=== PATIENT | female | born 1955 | race Caucasian/White ===

== ENCOUNTER → 2017-01-22 | Outpatient (CLI) | payer BC ==
[~2017-01-22] MED LIST: ADVIL200 MG PO; AMOXICILLIN875 MG PO; ASPIRIN 81M81 MG/TA2 PO; CENTRUM SILVER1 TAB PO; CINNAMON500 MG PO; DETROL LA4 PO; DUTOPROL PO; GLUCOPHAGE500 MG/TAB PO; GLUCOSAMINE & C1 CA2 PO; HYZAAR 12.5 MG-1 TAB PO; LUTEIN20 M1 PO; NORVASC 10MG10 MG PO; PLAVIX 75MG TAB75 MG PO; TOPROL XL100 MG PO; TYLENOL 325MG325 MG PO; VITAMIN C500 MG PO; ZOCOR 40MG40 MG PO
== END ==
LOC: MC.RAD 13:04
DX: Z12.31 Encounter for screening mammogram for malignant neoplasm of breast (principal); Z80.3 Family history of malignant neoplasm of breast

== ENCOUNTER → 2018-01-24 | Outpatient (CLI) | payer BC | LOC: MC.RAD 12:57 | DX: Z12.31 Encounter for screening mammogram for malignant neoplasm of breast (principal) ==

== ENCOUNTER → 2019-02-01 | Outpatient (CLI) | payer MEDICARE, OTHER | LOC: MC.RAD 13:35 | DX: Z12.31 Encounter for screening mammogram for malignant neoplasm of breast (principal) ==

== ENCOUNTER → 2020-05-14 | Outpatient (CLI) | payer MEDICARE, OTHER | LOC: MC.RAD 16:04 | DX: Z12.31 Encounter for screening mammogram for malignant neoplasm of breast (principal) ==

== ENCOUNTER → 2021-05-15 | Outpatient (CLI) | payer MEDICARE, OTHER | LOC: MC.RAD 09:04 | DX: Z12.31 Encounter for screening mammogram for malignant neoplasm of breast (principal) ==

== ENCOUNTER 2021-12-10 09:45 | Day surgery (SDC) | payer MEDICARE, OTHER ==
[~2021-12-10] VITALS: Ht 162.6 cm; Wt 88.0 kg
[2021-12-10] VITALS (15 sets, daily range): BP systolic 120–156; BP diastolic 59–95; PULSE 40–54; TEMP 97.4
[2021-12-10 10:45] LABS: HEMOGLOBIN 13.6 g/dl (12.5-16.0); MEAN CELL VOLUME 84 fl (80.0-100.0); MEAN CORPUSCULAR HEMOGLOBIN 31 pg (27-31); MEAN CORPUSCULAR HGB CONC 37 g/dl (33.0-37.0); MEAN PLATELET VOLUME 10.1 fl (7.4-10.4); PLATELET COUNT 309 K/mm3 (130-400); RED BLOOD COUNT 4.34 M/mm3 (4.10-5.30); REDCELL DISTRIBUTION WIDTH-CV 11.6 % (11.5-14.5)
[2021-12-10 10:46] LABS: HEMATOCRIT 36.5 % (37.0-47.0)
[2021-12-10 10:58] LABS: CALCIUM 9.8 mg/dL (8.4-10.2); CREATININE, serum 0.86 mg/dL (0.57-1.11); POTASSIUM 3.5 mmol/L (3.5-4.5)
[2021-12-10 11:12] LABS: PROTHROMBIN TIME 11.5 SECONDS (9.7-12.8)
--- NOTE | 2021-12-10 11:41 | NUR ---
See merge for all medication admin times and intra post sedation assessment.
[2021-12-10] MEDS ORDERED: LIPITOR 80MG80 MG PO (14:37)
[2021-12-10] MEDS ORDERED: TOPROL XL 50MG50 MG PO (14:37)
[2021-12-10] MEDS ORDERED: IMDUR 60MG60 MG/TAB PO (14:38)
[2021-12-10] MEDS ORDERED: ATACAND HCT 321 TA1 PO (14:39)
--- NOTE | 2021-12-10 17:38 | NUR ---
1525 WAS INFORMED HOONRIO (MERGERS AND ACQUISITIONS ATTORNEY) WAS IN PATIENT'S ROOM HOLDING PRESSURE TO PATIENT'S RIGHT ARM AT AND ABOVE RIGHT ELBOW PATIENT IFORMED STAFF OF PAIN TO AREA. HEMATOMA NOTED, ICE APPLIED TO SITE. DR OLIVO AT BEDSIDE, ORDERED FENTANYL FOR PAIN WHICH WAS GIVEN. INCREASD MONITORING OF SITE ENSUED, WITHOUT FURTHER BLEEDING.
--- NOTE | 2021-12-10 17:49 | NUR ---
1615, ALL AIR REMOVED FROM RR WITH NO BLEEDING. SITE STARTED OOZING, 10 ML AIR REPLACED IN RR, BLEEDING STOPPED.
--- NOTE | 2021-12-10 18:39 | NUR ---
REMOVED LAST 2 ML OF AIR FROM RIGHT WRIST COMPRESSION BAND AT 1815. NO BLEEDING NOTED. ASSISTED PATIENT TO CHANGE INTO CLOTHES, REMOVED COMPRSSION BAND, APPLIED 4X4'S AND COBAND. NO BLEEDING OCCURRED. REMOVED IVL INTACT. ASSISTED PATIENT TO WAITING ROOM EXIT FOR RIDE HOME
== END 2021-12-10 18:41 | disposition home or self-care (01) ==
LOC: COL.CAR 09:45
PROVIDERS: Internal Medicine Cardiovascular Disease
DX: I25.110 Atherosclerotic heart disease of native coronary artery with unstable angina pectoris (principal); I63.019 Cerebral infarction due to thrombosis of unspecified vertebral artery; R00.1 Bradycardia, unspecified; I10 Essential (primary) hypertension; E78.2 Mixed hyperlipidemia; Z79.82 Long term (current) use of aspirin; Z79.02 Long term (current) use of antithrombotics/antiplatelets; Z79.899 Other long term (current) drug therapy
CPT/HCPCS: C1769; J1644; J2250; J3010; Q9967

== ENCOUNTER → 2022-05-18 | Outpatient (CLI) | payer MEDICARE, OTHER ==
[~2022-05-18] MED LIST changes: +ATACAND HCT 321 TA1 PO; +IMDUR 60MG60 MG/TAB PO; +LIPITOR 80MG80 MG PO; +TOPROL XL 50MG50 MG PO
== END ==
LOC: MC.RAD 08:47
DX: Z12.31 Encounter for screening mammogram for malignant neoplasm of breast (principal)

== ENCOUNTER → 2024-05-22 | Outpatient (CLI) | payer MEDICARE, OTHER | LOC: MC.RAD 08:41 | DX: Z12.31 Encounter for screening mammogram for malignant neoplasm of breast (principal) ==